=== PATIENT | male | born 1940 | race Caucasian/White ===

== ENCOUNTER 2017-12-22 15:54 | Outpatient (CLI) | payer MEDICARE ==
[2017-12-22 16:53] LABS: Bilirubin Negative (Negative); Blood, Urine Negative (Negative); Glucose, Urine (Dipstick) Negative (Negative); Leukocyte Negative (Negative); Nitrite Negative (Negative); Protein, Urine (Dipstick) Negative (Neg-Trace); Specific Gravity, Urine 1.015 (1.005-1.030); Urobilinogen 0.2 mg/dL (0.2-1.0)
[2017-12-22 16:54] LABS: Clarity Hazy (Clear)
== END 2017-12-22 15:55 | disposition home or self-care (01) ==
LOC: MADLAB 15:54
PROVIDERS: ATTEND Family Medicine
DX: I10 Essential (primary) hypertension (principal)
CPT/HCPCS: 81003

== ENCOUNTER 2018-02-15 18:49 | Emergency (ER) | payer MEDICARE, MEDICAID ==
[~2018-02-15 18:49] MED LIST: Sodium Chloride 0.9% 1,000 ML BAG ONE
[2018-02-15] MEDS ORDERED: Naloxone HCl 2 mg/2 ml Syringe ONE (19:08)
[2018-02-15 19:46] LABS: Clarity Clear (Clear); Specific Gravity, Urine 1.025 (1.005-1.030)
[2018-02-15 19:47] LABS: Bilirubin Negative (Negative); Blood, Urine Negative (Negative); Glucose, Urine (Dipstick) Negative (Negative); Leukocyte Negative (Negative); Nitrite Negative (Negative); Protein, Urine (Dipstick) Negative (Neg-Trace)
[2018-02-15 20:13] LABS: #Lymphocytes 1.5 thou/uL (1.20-3.40); #Monocytes 0.7 thou/uL (0.11-0.59); #Neutrophils 9.7 thou/uL (1.40-6.50); %Basophils 0.4 % (0.0-1.0); %Eosinophils 0.1 % (0.0-10.0); %Lymphocytes 12.8 % (21.0-51.0); %Monocytes 5.9 % (0.0-10.0); %Neutrophils 80.8 % (42.0-75.0); Large Platelets SLIGHT; MDiff Complete? YES; Mean Corpuscular HGB CONC 33.8 g/dL (32.0-36.0); Mean Corpuscular Hemoglobin 32.3 pg (27.0-31.0); Mean Corpuscular Volume 95.7 fl (80.0-94.0); Mean Platelet Volume 10.5 fL (7.4-10.4); PLT Morphology Comment PLT clumps seen-LOW; Platelet Count 107 thou/uL (130-400); RBC Distribution Width 13.4 % (11.5-14.5); Red Blood Cell (RBC) Count 4.34 mill/uL (4.70-6.10)
[2018-02-15 20:17] LABS: ALT (SGPT) 22 U/L (8-55); AST (SGOT) 55 U/L (5-34); Albumin 3.3 g/dL (3.4-4.8); Alkaline Phosphatase 46 U/L (40-150); Anion Gap 16 mmol/L (10-20); BUN (Urea Nitrogen) 22 mg/dL (8.4-25.7); Bilirubin, Total 0.8 mg/dL (0.2-1.2); Calc. Creatinine Clearance 0 mL/min (70-130); Calcium 8.8 mg/dL (7.8-10.44); Carbon Dioxide 24 mmol/L (23-31); Chloride 103 mmol/L (98-107); Estimated GFR-MDRD 71; Glucose 141 mg/dL (83-110); Protein, Total 6.3 g/dL (5.8-8.1); Sodium 139 mmol/L (136-145)
[2018-02-15 20:37] LABS: Troponin I 0.049 ng/mL (< 0.028)
--- NOTE | 2018-02-15 20:53 | CT ---
CT OF THE BRAIN WITHOUT CONTRAST: 02/15/18 COMPARISON: 10/24/14 HISTORY: Altered mental status for a day. History of dementia. TECHNIQUE: Multiple contiguous axial images were obtained in a CT of the brain without contrast. FINDINGS: The brain is normal in morphology and attenuation without focal lesions are confluent areas of infarc tion. There may be mild diffuse cerebral atrophy. There is no evidence of hydrocephalus, intracranial hemorrhage, or extra-axial fluid collection. The calvarium and overlying soft tissues are unremarkable. The visualized paranasal sinuses and masto id air cells are well aerated. IMPRESSION: No evidence of acute intracranial abnormality. POS: [facility]
--- NOTE | 2018-02-15 21:56 | RAD ---
SINGLE VIEW OF THE CHEST: 02/15/18 COMPARISON: 10/19/15 HISTORY: Altered mental status. FINDINGS: Single view of the chest shows an enlarged but stable cardiomediastinal silhouette. The patient is st atus post CABG. There may be a small left pleural effusion with adjacent atelectasis versus infiltrat e. IMPRESSION: Small pleural effusion with adjacent atelectasis versus infiltrate. POS: [facility]
== END 2018-02-15 22:00 | disposition short-term general hospital (02) ==
LOC: MADERS 18:49
DX: I21.4 Non-ST elevation (NSTEMI) myocardial infarction (principal); R41.82 Altered mental status, unspecified; I10 Essential (primary) hypertension; F31.9 Bipolar disorder, unspecified; F29 Unspecified psychosis not due to a substance or known physiological condition; Z79.82 Long term (current) use of aspirin; Z79.899 Other long term (current) drug therapy
CPT/HCPCS: 51701; 70450; 71045; 80053; 81003; 82553; 84443; 84484; 85025; 87086; 93005; 96361; 96374; J2310

== ENCOUNTER 2018-03-28 16:26 | Emergency (ER) | payer MEDICARE, MEDICAID ==
[2018-03-28 17:28] LABS: #Basophils 0.1 thou/uL (0.0-0.2); #Eosinphils 0.1 thou/uL (0.0-0.7); #Lymphocytes 1.4 thou/uL (1.20-3.40); #Monocytes 0.6 thou/uL (0.11-0.59); #Neutrophils 3.7 thou/uL (1.40-6.50); %Basophils 1.8 % (0.0-1.0); %Eosinophils 1.9 % (0.0-10.0); %Lymphocytes 23.3 % (21.0-51.0); %Monocytes 10.4 % (0.0-10.0); %Neutrophils 62.7 % (42.0-75.0); Hemoglobin 14.6 g/dL (14.0-18.0); Mean Corpuscular HGB CONC 32.6 g/dL (32.0-36.0); Mean Corpuscular Volume 91.9 fl (80.0-94.0); Mean Platelet Volume 9.7 fL (7.4-10.4); Platelet Count 133 thou/uL (130-400); RBC Distribution Width 13.2 % (11.5-14.5); Red Blood Cell (RBC) Count 4.87 mill/uL (4.70-6.10); White Blood Cell (WBC) Count 5.9 thou/uL (4.8-10.8)
[2018-03-28 17:44] LABS: Anion Gap 15 mmol/L (10-20); BUN (Urea Nitrogen) 11 mg/dL (8.4-25.7); Calc. Creatinine Clearance 0 mL/min (70-130); Calcium 9.1 mg/dL (7.8-10.44); Carbon Dioxide 27 mmol/L (23-31); Chloride 101 mmol/L (98-107); Estimated GFR-MDRD 90; Glucose 89 mg/dL (83-110); Potassium 4.1 mmol/L (3.5-5.1); Sodium 139 mmol/L (136-145)
--- NOTE | 2018-03-28 18:32 | CT ---
CT OF BRAIN PERFORMED WITHOUT CONTRAST ENHANCEMENT: 03/28/18 HISTORY: Altered mental status. COMPARISON: 02/15/18 study. Patient moved during this examination and a portion of the convexities which are not included on this exam. The ventricular and cisternal system shows generalized atrophy. There is no signs of intracere bral hemorrhage or extra-axial fluid collections. No mass lesion or mass effect. The mastoid air cell s and visualized sinuses are clear. IMPRESSION: Patient moved during this examination. Some of the upper images over the vertex were not included du e to the movement. No acute intracranial abnormality demonstrated. POS: [facility]
[2018-03-28] MEDS ORDERED: Acetaminophen 500 MG TAB ONE (19:26)
== END 2018-03-28 19:42 | disposition home or self-care (01) ==
LOC: MADERS 16:26
DX: S09.90XA Unspecified injury of head, initial encounter (principal); S00.83XA Contusion of other part of head, initial encounter; F03.90 Unspecified dementia, unspecified severity, without behavioral disturbance, psychotic disturbance, mood disturbance, and anxiety; G30.9 Alzheimer's disease, unspecified; F02.80 Dementia in other diseases classified elsewhere, unspecified severity, without behavioral disturbance, psychotic disturbance, mood disturbance, and anxiety; I10 Essential (primary) hypertension; F31.9 Bipolar disorder, unspecified; F22 Delusional disorders; Z79.899 Other long term (current) drug therapy; Z79.82 Long term (current) use of aspirin; W22.8XXA Striking against or struck by other objects, initial encounter
CPT/HCPCS: 36415; 70450; 80048; 85025

== ENCOUNTER 2018-03-29 07:20 | Inpatient (IN) | payer MEDICARE, OTHER ==
[2018-03-29] MEDS ORDERED: Sodium Chloride 0.9% 1,000 ML BAG ONE (07:41)
[2018-03-29] MEDS ORDERED: Sodium Chloride 0.9% 100 ML BAG ONE (07:41)
[2018-03-29 08:15] LABS: #Basophils 0.1 thou/uL (0.0-0.2); #Lymphocytes 1.6 thou/uL (1.20-3.40); #Monocytes 0.8 thou/uL (0.11-0.59); #Neutrophils 7.8 thou/uL (1.40-6.50); %Basophils 1.1 % (0.0-1.0); %Eosinophils 0.1 % (0.0-10.0); %Lymphocytes 15.2 % (21.0-51.0); %Monocytes 7.6 % (0.0-10.0); Hemoglobin 14.4 g/dL (14.0-18.0); Mean Corpuscular Hemoglobin 29.4 pg (27.0-31.0); Mean Corpuscular Volume 91.8 fl (80.0-94.0); Mean Platelet Volume 9.5 fL (7.4-10.4); Platelet Count 122 thou/uL (130-400); RBC Distribution Width 13.5 % (11.5-14.5); Red Blood Cell (RBC) Count 4.91 mill/uL (4.70-6.10); White Blood Cell (WBC) Count 10.2 thou/uL (4.8-10.8)
[2018-03-29] MEDS ORDERED: Cefepime 1 GM VIAL ONE (08:28)
[2018-03-29 08:31] LABS: ALT (SGPT) 13 U/L (8-55); AST (SGOT) 19 U/L (5-34); Albumin 3.4 g/dL (3.4-4.8); Alkaline Phosphatase 52 U/L (40-150); Anion Gap 16 mmol/L (10-20); BUN (Urea Nitrogen) 13 mg/dL (8.4-25.7); Bilirubin, Total 0.6 mg/dL (0.2-1.2); Calc. Creatinine Clearance 0 mL/min (70-130); Carbon Dioxide 24 mmol/L (23-31); Chloride 103 mmol/L (98-107); Estimated GFR-MDRD Greater than 90; Glucose 89 mg/dL (83-110); Potassium 4.1 mmol/L (3.5-5.1); Protein, Total 6.4 g/dL (5.8-8.1); Sodium 139 mmol/L (136-145)
--- NOTE | 2018-03-29 08:39 | RAD ---
CHEST 1 VIEW: Date: 03/29/18 HISTORY: Fever. COMPARISON: 02/17/18. FINDINGS: Cardiac silhouette is magnified by projection. Pulmonary vasculature more engorged. Mediastinum midli ne with postoperative changes and aortic calcification. Opacity at the left base obscures the left he midiaphragm. hand laster leads overlie the chest. IMPRESSION: 1. Left basilar opacity, suspicious for infiltrate. Clinical correlation regarding other signs and s ymptoms of left basilar pneumonitis is required in the setting of fever. Please consider follow-up wi th upright PA and lateral views of the chest when the patient can undergo that exam. 2. Mild pulmonary vascular congestion. 3. Atherosclerosis. POS: [facility]
[2018-03-29 10:19] VITALS: BMI 29.7
[2018-03-29] MEDS ORDERED: Calcium Carbonate 500 MG ChewTAB PO PRN (10:24)
[2018-03-29] MEDS ORDERED: Guaifenesin DM 100-10/5 ML UDCUP PO PRN (10:24)
[2018-03-29] MEDS ORDERED: Ondansetron ODT 4 MG TAB PO PRN (10:25)
[2018-03-29] MEDS ORDERED: Sodium Chloride 0.9% 1,000 ML IV SCH (10:30)
[2018-03-29] MEDS ORDERED: Acetaminophen 500 MG TAB PO PRN (10:57)
[2018-03-29] MEDS: Acetaminophen 325 MG TAB PO PRN ×2 (18:19→21:42)
[2018-03-29] MEDS ORDERED: PALIPERIDONE 6 MG PO SCH (21:00)
[2018-03-29] MEDS ORDERED: DIVALPROEX SODIUM 500 MG PO SCH (21:00)
--- NOTE | 2018-03-29 21:18 | HP ---
DATE OF ADMISSION: 03/29/2018 ATTENDING/PCP: Dr. Ojeda. REASON FOR ADMISSION: Altered mental status. HISTORY OF PRESENT ILLNESS: Mr. Kelsey is a 77-year-old male, a long- term resident of [facility] who has a multiple chronic medical condition including advanced dementia, bipolar disorder, dementia with psychosis, delusional disorder and major depression. The patient was initially reported by the staff to have a fall a couple days ago. There was no major injury sustained, thus patient was observed and monitored in the [facility]. Yesterday, the patient was reported to have increased confusion with pinpoint pupils and not his usual self, thus he was initially sent to [facility] ER for further evaluation. At that time, the ER physician, Dr. Canela reported that patient was talking, awake and alert on initial assessment and deemed to be at his baseline mental status. CT scan of the brain was ordered which revealed an intracranial process or abnormality seen. The patient was sent back to the [facility] at around midnight with diagnosis of forehead contusion after minor head injury. No new changes nor further medical recommendations ordered. At around 6:00 a.m. this morning, staff reported that patient was unresponsive, very wet lung sounds with a temperature of 100.4, blood pressure down to 99/54, O2 saturation 93% at room air and not easily aroused. Patient was transferred back to [place] ER for further evaluation. On further evaluation at the ER, patient's initial vital signs at the ER showed blood pressure 125/62, pulse 68, respirations 22 with a temperature of 100.3 at 95% on room air. Patient was reported to be responsive to verbal stimuli and appears pain free. His Navjot coma scale was 4 for spontaneous eye opening and verbal is 4 with confusion, disorientation and 6 obeys commands spontaneously. On further examination, his chest x-ray showed left lower lobe pneumonia considered healthcare associated pneumonia, thus recommended inpatient medical management. Patient was started on empiric IV antibiotic with vancomycin and cefepime. He was also started on IVF with normal saline. Patient remains hemodynamically stable while in the ER. When evaluated in the on the floor, patient was asleep. He is not easily arousable, but moves his eyes when told to open his eyes at least. Afterwards, patient was fully awaken when mealtime was ready and started eating on his own, but needs some assistance. He was talking, but remains confused, which appears to be his baseline. No other issues reported at this time. PAST MEDICAL HISTORY: 1. Hypertension. 2. Advanced dementia, anxiety, depression, bipolar I disorder. 3. Dementia with psychosis. 4. Extrapyramidal and movement disorder. 5. Severe recurrent major depressive disorder with psychotic symptoms. 6. Vascular dementia with behavioral disturbances. 7. Atherosclerosis of [place] coronary artery disease, without angina pectoris. 8. Pneumonia on 01/2018 requiring hospitalization for IV antibiotic therapy for few days then tranaferred back to the [facility] on oral antibiotic therapy. At that time he was treated with Levaquin. Repeat Chest Xray post antibiotic therapy in the [facility] was reported with acute bronchitis. . PAST SURGICAL HISTORY: Coronary artery bypass grafting in 1988. HOSPITALIZATION: On 02/16/2018 for altered mental status, diagnosed with pneumonia. FAMILY HISTORY: Noncontributory. Unobtainable. REVIEW OF SYSTEMS: Unobtainable due to advanced dementia. MEDICATIONS: Acetaminophen 500 mg q.4 hours 1-2 tablets as needed, Aricept ( donepezil) 23 mg tablet daily, aspirin 81 mg p.o. daily, Ativan 0.5 mg 1 tab p.o. b.i.d., Depakote 500 mg b.i.d. and an addition of 125 mg q.p.m. at bedtime , Effexor ER 75 mg p.o. daily, Invega ER 6 mg p.o. at bedtime, Lasix 20 mg 1 tab p.o. daily, metoprolol 50 mg 1 tab p.o. daily and Namenda 10 mg p.o. b.i.d. ALLERGIES: NKDA. PHYSICAL EXAMINATION: VITAL SIGNS: Blood pressure 134/59, temperature 99.4, pulse 70, respirations 16 , O2 sats 95% at room air, weight 201 pounds, height 5 feet 9 inches. GENERAL: Patient is asleep, would not open his eyes spontaneously, moves his eyes spontaneously with verbal and tactile stimuli. Comfortable on exam,no signs of agony, not in acute distress. HEENT: Normocephalic, atraumatic. PERRL, EOMI. Nonicteric sclerae. Oral mucosa is moist. NECK: Supple. No LAD, no JVD, no bruit. CHEST: Normal excursion and labored breathing. RESPIRATORY: Diminished left lung base, otherwise clear to auscultation. No rales, no crackles, no rhonchi or wheezing. CARDIAC: RRR. Normal S1 and S2. No murmurs. ABDOMEN: Flat, soft, normoactive bowel sounds, nondistended, nontender, no rebound, no guarding. Negative CVA tenderness bilaterally. EXTREMITIES: No edema, no cyanosis. NEUROLOGIC: Nonfocal. DTRs 2+. Gait not evaluated. PSYCHIATRIC: Calm, quiet, pleasant, cooperative. LABORATORY: WBC 10.2, hemoglobin 14.4, hematocrit 45.1, platelets 122. Sodium 139, potassium 4.1, carbon dioxide 24, BUN 13, creatinine 0.80, estimated GFR greater than 90. Liver function tests within normal limits. Chest x-ray as interpreted by radiologist showed left basilar opacity suspicious for infiltrates, mild pulmonary vascular congestion, atherosclerosis. ASSESSMENT: 1. Healthcare Associated Pneumonia, left lower lobe. 2. Altered mental status, improved. 3. Thrombocytopenia, mild, to be monitored. 4. Hypertension. 5. Bipolar disorder. 6. Dementia with psychosis. 7. Major depressive symptoms, recurrent. 8. Advanced dementia with behavioral disturbances. 9. History of Dementia with Psychosis, requiring [facility] hospitalization and parenteral Invega for a while. 10. At risk for elopement. PLAN: 1. The patient is admitted to Medical/Surgical for inpatient management of left lower lobe pneumonia. We will continue IV antibiotic therapy. Pending cultures. Serial chest x-ray and p.r.n. Routine lab monitoring as needed. He will continue home medications as modified per list. 2. We will repeat CBC in the morning. If thrombocytopenia persists, we will consider discontinuation of antithrombotic or anticoagulant. 3. SCD for DVT prophylaxis. Further recommendations depending on the lab test in the morning. 4. O2 to keep O2 sats 94% and above. 5. Add DuoNeb p.r.n. 6. Further recommendations depending on the hospital course. 7. Estimated length of stay may need at least 2-3 days overnight stay for titration of the medication. 8. Code status: Patient was FULL CODE prior to admission. I spoke to patient' s daughter, Desire Burrows who acts as the guardian and discuss advance directive for patient on the phone. After lengthy discussion, daughter reports daughter changed code status to DNR per request as she states patient does not really want to have this kind of poor quality of life, so it is time that decide to change code status to DNR at this time. Patient's daughter will be coming over today to sign the DNR papers here in the hospital as well as in the [facility] , so referred to geriatric social worker for the completion of the advanced directive papers. DISPOSITION: [facility]. [facility]
[2018-03-29] MEDS: Lorazepam 0.5 MG TAB PO SCH (21:41)
[2018-03-29] MEDS: Metoprolol Tartrate 50 MG TAB PO SCH (21:42)
[2018-03-29] MEDS: Cefepime 2 GM in Sodium Chloride 0.9% 100 ML IVPB SCH (21:42)
[2018-03-30] MEDS: Acetaminophen 325 MG TAB PO PRN (04:33)
[2018-03-30 05:24] LABS: Anion Gap 13 mmol/L (10-20); BUN (Urea Nitrogen) 13 mg/dL (8.4-25.7); Calc. Creatinine Clearance 98 mL/min (70-130); Calcium 8.5 mg/dL (7.8-10.44); Carbon Dioxide 24 mmol/L (23-31); Chloride 103 mmol/L (98-107); Estimated GFR-MDRD Greater than 90; Glucose 107 mg/dL (83-110); Potassium 3.9 mmol/L (3.5-5.1); Sodium 136 mmol/L (136-145)
[2018-03-30 05:31] LABS: Band 2 % (5-11); Hemoglobin 12.9 g/dL (14.0-18.0); Lymphocytes 8 % (21-51); MDiff Complete? YES; Mean Corpuscular HGB CONC 33.3 g/dL (32.0-36.0); Mean Corpuscular Hemoglobin 30.6 pg (27.0-31.0); Mean Corpuscular Volume 91.7 fl (80.0-94.0); Mean Platelet Volume 10.5 fL (7.4-10.4); Monocytes 6 % (0-10); Neutrophil 76 % (42-75); PLT Morphology Comment Appears Decreased; Platelet Count 110 thou/uL (130-400); RBC Morphology Normal; Reactive Lymphocytes 8 % (0-10); Red Blood Cell (RBC) Count 4.21 mill/uL (4.70-6.10); White Blood Cell (WBC) Count 10.3 thou/uL (4.8-10.8)
[2018-03-30] MEDS: Furosemide 20 MG TAB PO SCH (08:45)
[2018-03-30] MEDS: Venlafaxine XR 37.5 MG CAP PO SCH (08:46)
[2018-03-30] MEDS: Lorazepam 0.5 MG TAB PO SCH ×2 (08:48→20:56)
[2018-03-30] MEDS: Cefepime 2 GM in Sodium Chloride 0.9% 100 ML IVPB SCH ×2 (08:50→20:55)
[2018-03-30] MEDS ORDERED: VENLAFAXINE HCL 75 MG PO SCH (09:00)
[2018-03-30] MEDS ORDERED: DONEPEZIL HCL 23 MG PO SCH (09:00)
--- NOTE | 2018-03-30 09:37 | RAD ---
CHEST 1 VIEW: Date: 03/30/18 HISTORY: Dyspnea. Follow-up. COMPARISON: 03/29/18. FINDINGS: Cardiac silhouette is magnified and upper limits of normal in size. Pulmonary vasculature remains eng orged with widespread reticulonodular interstitial prominence. Mediastinum midline with aortic calcif ication. Azygos fissure now better visualized. Obscuration of left hemidiaphragm is unchanged with the appearance of infiltrate and pleural fluid. IMPRESSION: Left basilar infiltrate, pulmonary vascular congestion, and other findings are stable. POS: [facility]
[2018-03-30] MEDS: Azithromycin 500 MG in Sodium Chloride 0.9% 250 ML 250 ML IVPB SCH (09:38)
[2018-03-30] MEDS ORDERED: Lantiseptic Ointment 130 GM JAR TOP PRN (18:06)
[2018-03-30] MEDS: Metoprolol Tartrate 50 MG TAB PO SCH (20:56)
[2018-03-30] MEDS: PALIPERIDONE 6 MG PO SCH (20:58)
[2018-03-31] MEDS: Azithromycin 500 MG in Sodium Chloride 0.9% 250 ML 250 ML IVPB SCH (08:22)
[2018-03-31] MEDS: Cefepime 2 GM in Sodium Chloride 0.9% 100 ML IVPB SCH ×2 (08:22→21:10)
[2018-03-31] MEDS: Venlafaxine XR 37.5 MG CAP PO SCH (08:26)
[2018-03-31] MEDS: Furosemide 20 MG TAB PO SCH (08:26)
[2018-03-31] MEDS: Lorazepam 0.5 MG TAB PO SCH (08:26)
[2018-03-31 15:30] LABS: Eosinophils 2 % (0-10); Giant Platelets SLIGHT; Hemoglobin 14.1 g/dL (14.0-18.0); Lymphocytes 17 % (21-51); MDiff Complete? YES; Mean Corpuscular HGB CONC 33.1 g/dL (32.0-36.0); Mean Corpuscular Hemoglobin 30.3 pg (27.0-31.0); Mean Corpuscular Volume 91.3 fl (80.0-94.0); Mean Platelet Volume 10.1 fL (7.4-10.4); Monocytes 6 % (0-10); Neutrophil 66 % (42-75); PLT Morphology Comment Appears Decreased; Platelet Count 106 thou/uL (130-400); RBC Morphology Normal; Reactive Lymphocytes 9 % (0-10); Red Blood Cell (RBC) Count 4.65 mill/uL (4.70-6.10); White Blood Cell (WBC) Count 7.5 thou/uL (4.8-10.8)
[2018-03-31] MEDS ORDERED: Lorazepam 0.5 MG TAB PO PRN (15:51)
[2018-03-31] MEDS: PALIPERIDONE 6 MG PO SCH (21:10)
[2018-03-31] MEDS: Metoprolol Tartrate 50 MG TAB PO SCH (21:10)
[2018-04-01 05:09] LABS: Hemoglobin 12.4 g/dL (14.0-18.0); Platelet Count 135 thou/uL (130-400)
[2018-04-01] MEDS: Azithromycin 500 MG in Sodium Chloride 0.9% 250 ML 250 ML IVPB SCH (08:40)
[2018-04-01] MEDS: Cefepime 2 GM in Sodium Chloride 0.9% 100 ML IVPB SCH ×2 (08:40→20:25)
[2018-04-01] MEDS: Venlafaxine XR 37.5 MG CAP PO SCH (08:40)
[2018-04-01] MEDS: Furosemide 20 MG TAB PO SCH (08:41)
[2018-04-01] MEDS: Metoprolol Tartrate 50 MG TAB PO SCH (20:24)
[2018-04-01] MEDS: Acetaminophen 325 MG TAB PO PRN (20:24)
[2018-04-01] MEDS: PALIPERIDONE 6 MG PO SCH (20:34)
[2018-04-02 05:18] LABS: #Basophils 0.1 thou/uL (0.0-0.2); #Eosinphils 0.4 thou/uL (0.0-0.7); #Lymphocytes 2.6 thou/uL (1.20-3.40); #Monocytes 0.6 thou/uL (0.11-0.59); #Neutrophils 4.2 thou/uL (1.40-6.50); %Basophils 1.2 % (0.0-1.0); %Eosinophils 4.7 % (0.0-10.0); %Lymphocytes 33.9 % (21.0-51.0); %Monocytes 7.1 % (0.0-10.0); %Neutrophils 53.1 % (42.0-75.0); Hemoglobin 12.6 g/dL (14.0-18.0); Mean Corpuscular HGB CONC 32.8 g/dL (32.0-36.0); Mean Corpuscular Hemoglobin 30.4 pg (27.0-31.0); Mean Corpuscular Volume 92.6 fl (80.0-94.0); Mean Platelet Volume 9.8 fL (7.4-10.4); Platelet Count 149 thou/uL (130-400); RBC Distribution Width 12.9 % (11.5-14.5); Red Blood Cell (RBC) Count 4.14 mill/uL (4.70-6.10); White Blood Cell (WBC) Count 7.8 thou/uL (4.8-10.8)
[2018-04-02] MEDS: Cefepime 2 GM in Sodium Chloride 0.9% 100 ML IVPB SCH (08:53)
[2018-04-02] MEDS: Furosemide 20 MG TAB PO SCH (08:54)
[2018-04-02] MEDS: Venlafaxine XR 37.5 MG CAP PO SCH (08:55)
--- NOTE | 2018-04-02 09:31 | RAD ---
CHEST 1 VIEW: Date: 04/02/18 HISTORY: Dyspnea. Follow-up. COMPARISON: 03/30/18. FINDINGS: Cardiac silhouette remains magnified and upper limits of normal in size. Pulmonary vasculature remain s engorged. Widespread reticulonodular interstitial prominence is similar in appearance. Left hemidia phragm remains obscured. Mediastinum midline with postoperative changes and aortic calcification. IMPRESSION: Left basilar infiltrate, pulmonary vascular congestion, and other findings are stable. POS: [facility]
[2018-04-02] MEDS: Azithromycin 500 MG in Sodium Chloride 0.9% 250 ML 250 ML IVPB SCH (10:13)
[2018-04-02 11:32] VITALS: BP 119/56; TEMP 98.3
== END 2018-04-02 14:18 | disposition swing bed (61) | DRG 195 ==
LOC: MADERS 07:20 → MADMS 08:35
PROVIDERS: ADMIT Family Medicine; ATTEND Family Medicine
DX: J18.9 Pneumonia, unspecified organism (principal); F32.9 Major depressive disorder, single episode, unspecified; I10 Essential (primary) hypertension; F03.90 Unspecified dementia, unspecified severity, without behavioral disturbance, psychotic disturbance, mood disturbance, and anxiety; F41.9 Anxiety disorder, unspecified; F31.9 Bipolar disorder, unspecified; F29 Unspecified psychosis not due to a substance or known physiological condition; F01.50 Vascular dementia, unspecified severity, without behavioral disturbance, psychotic disturbance, mood disturbance, and anxiety; I25.10 Atherosclerotic heart disease of native coronary artery without angina pectoris; D69.6 Thrombocytopenia, unspecified; Z66 Do not resuscitate
CPT/HCPCS: 36415; 71045; 80048; 80053; 80164; 85014; 85018; 85025; 85049; 87040; 87804; 96365; 96367; A4216; G8996-GN-CI; G8997-GN-CI; J0456; J0692; J3370; J7050; J7620

== ENCOUNTER 2018-04-02 11:28 | Inpatient (IN) | payer MEDICARE, OTHER ==
[2018-04-02 14:55] VITALS: BMI 29.7
[2018-04-02] MEDS ORDERED: Lorazepam 0.5 MG TAB PO PRN (16:40)
[2018-04-02] MEDS ORDERED: Guaifenesin DM 100-10/5 ML UDCUP PO PRN (16:40)
[2018-04-02] MEDS ORDERED: Calcium Carbonate 500 MG ChewTAB PO PRN (16:40)
[2018-04-02] MEDS ORDERED: Acetaminophen 325 MG TAB PO PRN (16:40)
[2018-04-02] MEDS ORDERED: Acetaminophen 500 MG TAB PO PRN (16:40)
[2018-04-02] MEDS ORDERED: Lantiseptic Ointment 130 GM JAR TOP PRN (16:40)
[2018-04-02] MEDS ORDERED: Azithromycin 500 MG VIAL IVPB SCH (16:45)
[2018-04-02] MEDS: Metoprolol Tartrate 50 MG TAB PO SCH (20:18)
[2018-04-02] MEDS: Cefepime 2 GM in Sodium Chloride 0.9% 100 ML IVPB SCH (20:18)
[2018-04-02] MEDS: PALIPERIDONE 6 MG PO SCH (20:19)
[2018-04-02] MEDS ORDERED: PALIPERIDONE 6 MG PO SCH (21:00)
[2018-04-02] MEDS ORDERED: Cefepime 2 GM VIAL IVPB SCH (21:00)
[2018-04-03] MEDS: Furosemide 20 MG TAB PO SCH (08:17)
[2018-04-03] MEDS: Venlafaxine XR 37.5 MG CAP PO SCH (08:17)
[2018-04-03] MEDS: Cefepime 2 GM in Sodium Chloride 0.9% 100 ML IVPB SCH (08:18)
[2018-04-03] MEDS ORDERED: Azithromycin 500 MG in Sodium Chloride 0.9% 250 ML 250 ML IVPB SCH (09:00)
[2018-04-03] MEDS ORDERED: Lantiseptic Ointment 130 GM JAR TOP PRN (13:14)
[2018-04-03] MEDS ORDERED: [UNRECOGNIZED DRUG - REMARK] FS SCH (16:30)
[2018-04-03] MEDS: Metoprolol Tartrate 50 MG TAB PO SCH (21:09)
[2018-04-03] MEDS: Cefdinir 300 MG CAP PO SCH (21:09)
[2018-04-03] MEDS: Lantiseptic Ointment 130 GM JAR TOP SCH (21:10)
[2018-04-03] MEDS: PALIPERIDONE 6 MG PO SCH (21:15)
[2018-04-04 06:48] VITALS: BP 167/74; TEMP 97.4
[2018-04-04] MEDS: Furosemide 20 MG TAB PO SCH (08:06)
[2018-04-04] MEDS: Venlafaxine XR 37.5 MG CAP PO SCH (08:06)
[2018-04-04] MEDS: Cefdinir 300 MG CAP PO SCH (08:07)
[2018-04-04] MEDS: Lantiseptic Ointment 130 GM JAR TOP SCH (08:10)
--- NOTE | 2018-04-05 00:32 | DIS ---
DATE OF ADMISSION: 03/29/2018 DATE OF DISCHARGE TO [facility]: 04/02/2018 DATE OF DISCHARGE TO [facility]: 04/04/2018 CHIEF COMPLAINT: Altered mental status and fever. FINAL DIAGNOSES: 1. Healthcare-associated pneumonia, left lower lobe, treated. 2. Altered mental status, improved, now back to baseline mental status. 3. Thrombocytopenia, mild, likely drug induce. Improved after transient discontinuation of aspirin. 4. Anemia, mild, likely dilutional. SECONDARY DIAGNOSES: 1. Hypertension, bipolar disorder, dementia with psychosis, major depressive symptoms, recurrent. 2. Advanced dementia with behavioral disturbances, stable. 3. History of dementia with psychosis, requiring [facility] hospitalization. Parenteral Invega for a while, now on oral Invega. 4. At risk for elopement secondary to confusion advanced dementia. DISPOSITION: [facility]. CONDITION ON DISCHARGE: Stable. HOME MEDICATIONS: 1. Acetaminophen 650 mg p.o. q.6 h. p.r.n. 2. Ativan 0.5 mg p.o. b.i.d. p.r.n. 3. Depakote 500 mg b.i.d. and 125 mg at bedtime. 4. Effexor 75 mg p.o. daily. 5. Invega ER 6 mg p.o. at bedtime. 6. Lasix 20 mg p.o. daily. 7. Metoprolol 50 mg 1 tab daily. 8. Namenda 10 mg p.o. b.i.d. DIET: Regular. ACTIVITIES: ad jessy. Transferred [facility]. Notify PCP once admitted to the [facility]. CODE STATUS: DNR as confirmed by the daughter. LABORATORY DATA: WBC 10.2, hemoglobin 14.4, hematocrit 45.1, platelets 122 on 03/29/2018. On 03/31/2018, platelets 106, WBC 7.5, hemoglobin 14.1, hematocrit 42.4. On 04/02/2018, WBC 7.4, hemoglobin 12.6, hematocrit 38.3, platelets 149. Chemistry on 03/30/2018, sodium 136, potassium 3.9, BUN 13, creatinine was 0.80, estimated GFR 90, glucose 107, valproic acid 48.5 on 04/01/2018. Microbiology negative growth in 5 days x2. Blood culture, influenza A and B negative. HISTORY OF PRESENT ILLNESS AND HOSPITAL COURSE: Mr. Kelsey is a 77-year-old male, a long-term resident of [facility], with multiple chronic medical conditions including hypertension, advanced dementia, bipolar, depression, and anxiety. The patient was initially reported to have a fall a couple days ago. No major injury sustained. He was observed and monitored in the [facility] initially, then he was transferred to [facility] ER secondary to altered mental status. At that time, the patient had a CT scan of the brain which was unremarkable, thus patient was sent back to the [facility]. Within the next 12 hours, the patient was noted to have an altered mental status. Staff had hard time waking him up, noted to have wet lung sounds, temperature of 100.4, blood pressure of 99/54. The patient was transferred to ER. On further evaluation, the patient was noted to have left lower lobe pneumonia by chest x-ray. He had been febrile for the next 24 hours only. Blood pressure has stabilized after IVF hydration. The patient was treated empirically with IV including vancomycin, cefepime from the ER. The patient had completed the Zithromax IV for 5 days and cefepime IV for 7 days. The patient repeatedly pulling out his IV site and eventually changed to Omnicef oral. The patient did well over the last 24 hours with oral antibiotic. He remained febrile free for the last 6 days. His vital signs have been stable including O2 sats at room air. The patient never had recurrence of respiratory distress since admission. He remains confused with no significant episodes of behavioral disturbances noted. He has been eating and sleeping fine. Ativan was previously taking at 0.5 mg p.o. b.i.d. scheduled , was changed to p.r.n., as it was deemed that it contributes more to his sleeping more especially during daytime. The patient did well on a p.r.n. dose anxiolytic. On 04/04/2018, the patient was deemed stable to be transferred back to [facility]. He was deemed inappropriate to travel via private car secondary to advanced dementia with some confusion and risk for elopement, thus we ordered for nonemergent EMS transfer. Vital signs prior to discharge, blood pressure 167/74, temperature 97.4, pulse of 52, respirations 20, O2 sats 93% at room air. Time spent on this discharge including examination and assessment of the patient and coordinating care 32 minutes. [facility]ALS[facility]
== END 2018-04-04 12:45 | DRG 194 ==
LOC: MADMS 14:21
PROVIDERS: ADMIT Family Medicine; ATTEND Family Medicine
DX: J18.9 Pneumonia, unspecified organism (principal); F33.9 Major depressive disorder, recurrent, unspecified; F03.91 Unspecified dementia, unspecified severity, with behavioral disturbance; Y95 Nosocomial condition; D64.9 Anemia, unspecified; D69.59 Other secondary thrombocytopenia; T39.015A Adverse effect of aspirin, initial encounter; I10 Essential (primary) hypertension; F31.9 Bipolar disorder, unspecified; Z91.81 History of falling; I25.10 Atherosclerotic heart disease of native coronary artery without angina pectoris; Z95.1 Presence of aortocoronary bypass graft; Z66 Do not resuscitate
CPT/HCPCS: J0456; J0692; J7050